=== PATIENT | female | born 1980 | race Two or more races ===

== ENCOUNTER 2019-09-25 06:46 | Emergency (ER) | payer OTHER ==
[~2019-09-25] VITALS: Ht 162.6 cm; Wt 93.0 kg
[2019-09-25 07:24] LABS: BASOPHILS # (AUTO) 0.06 x10^3/uL (0-0.1); BASOPHILS % (AUTO) 1 % (0-1); EOSINOPHILS # (AUTO) 0.06 x10^3/uL (0-0.4); EOSINOPHILS % (AUTO) 1 % (1-7); LYMPHOCYTES # (AUTO) 1.34 x10^3/uL (1-3.4); LYMPHOCYTES % (AUTO) 26 % (22-44); MD NO; MEAN CORPUSCULAR HEMOGLOBIN 24.3 pg (27.0-34.8); MEAN CORPUSCULAR HGB CONC 32.4 g/dL (32.4-35.8); MEAN CORPUSCULAR VOLUME 75.2 fL (80-100); MEAN PLATELET VOLUME 9.1 fL (7.4-10.4); MONOCYTES # (AUTO) 0.25 x10^3/uL (0.2-0.8); MONOCYTES % (AUTO) 5 % (2-9); NEUTROPHILS # (AUTO) 3.54 x10^3/uL (1.8-6.8); NEUTROPHILS % (AUTO) 67 % (42-75); PLATELET COUNT 294 x10^3/uL (130-400); RED CELL DISTRIBUTION WIDTH 16.3 % (9.6-15.2)
[2019-09-25 07:37] LABS: ALANINE AMINOTRANSFERASE 26 U/L (12-78); ALBUMIN 3.5 g/dL (3.4-5.0); ANION GAP 7 mmol/L (5-15); CALCIUM 8.8 mg/dL (8.5-10.1); CHLORIDE 110 mmol/L (98-107); CREATININE 0.76 mg/dL (0.55-1.02)
[2019-09-25 07:41] LABS: ALKALINE PHOSPHATASE 76 U/L (45-117); BILIRUBIN,TOTAL 0.3 mg/dL (0.2-1.0); TOTAL PROTEIN 7.4 g/dL (6.4-8.2)
[2019-09-25 07:47] LABS: MICROSCOPIC INDICATED
--- NOTE | 2019-09-25 07:48 | NUR ---
Pt to rm 16 from [facility]
[2019-09-25 07:56] LABS: CULTURE INDICATED? YES
[2019-09-25] MEDS ORDERED: ONDANSETRON ODT 8 MG PO ONE (08:00)
[2019-09-25] MEDS ORDERED: KETOROLAC 30 MG/1 ML IM ONE (08:00)
--- NOTE | 2019-09-25 08:00 | NUR ---
FIRST CONTACT WITH PT. PT C/O RIGHT BACK PAIN AND ABD PAIN ALONG WITH NAUSEA. PT'S AOX4. RESPS EVEN AND UNLABORED. BP/SPO2 MONITORS IN PLACE. CALL LIGHT WITHIN REACH.
[2019-09-25] MEDS ORDERED: KETOROLAC 30 MG/1 ML ONE ×2 (08:06→08:11)
[2019-09-25] MEDS ORDERED: ONDANSETRON ODT 8 MG ONE (08:06)
--- NOTE | 2019-09-25 08:20 | NUR ---
PT MEDICATED PER EMAR. PT TOLERATED WELL.
--- NOTE | 2019-09-25 08:23 | NUR ---
PT IN CT AT THIS TIME.
[2019-09-25] MEDS ORDERED: CEFTRIAXONE 1,000 MG IM ONE (09:00)
[2019-09-25] MEDS ORDERED: CEFTRIAXONE 1,000 MG ONE (09:12)
[2019-09-25 09:17] VITALS: BP 122/77
--- NOTE | 2019-09-25 09:18 | NUR ---
PT MEDICATED PER EMAR. PT TOLERATED WELL.
--- NOTE | 2019-09-25 09:26 | NUR ---
Patient given discharge instructions and they have confirmed that they understand the instructions.
[2019-09-25] MEDS ORDERED: CEFD300C37 PO (23:13)
== END 2019-09-25 09:27 | disposition home or self-care (01) ==
LOC: ED 08:57
DX: N13.2 Hydronephrosis with renal and ureteral calculous obstruction (principal)
CPT/HCPCS: 36415; 74176; 80053; 81001; 83690; 84703; 85025; 87086; 93005; 96372; 99285; J0696; J1885; Q0162

== ENCOUNTER 2019-09-25 21:57 | Emergency (ER) | payer OTHER ==
[~2019-09-25] VITALS: Ht 162.6 cm; Wt 94.0 kg
[2019-09-25] MEDS ORDERED: HYDROmorphone 1 MG/ML, 1ML INJ ONE (22:39)
[2019-09-25] MEDS ORDERED: KETOROLAC 30 MG/1 ML ONE (22:39)
[2019-09-25] MEDS ORDERED: ONDANSETRON 2MG/ML, 2ML ONE (22:39)
--- NOTE | 2019-09-25 22:41 | NUR ---
PT CAME IN CO OF 10 RIGHT FLANK PAIN. WAS SEEN EARLIER TODAY AND DIAGNOSED WITH KIDNEY STONES. FEMALE RN IS GETTING STRAIGHT CATH UA. SEE MAR FOR PAIN INTERVENTIONS
[2019-09-25 22:53] LABS: MICROSCOPIC INDICATED
--- NOTE | 2019-09-25 22:59 | NUR ---
PT REPORTS PAIN IMPROVEMENT TO 1/10.
[2019-09-25] MEDS ORDERED: KETOROLAC 30 MG/1 ML IVPush ONE (23:00)
[2019-09-25] MEDS ORDERED: SODIUM CHLORIDE FLUSH 10ML SYR IVF ONE (23:00)
[2019-09-25] MEDS ORDERED: HYDROmorphone 2 MG/ML, 1ML IVPush PRN (23:00)
[2019-09-25] MEDS ORDERED: ONDANSETRON 2MG/ML, 2ML IVPush ONE (23:00)
[2019-09-25 23:01] LABS: BASOPHILS # (AUTO) 0.04 x10^3/uL (0-0.1); BASOPHILS % (AUTO) 0 % (0-1); EOSINOPHILS % (AUTO) 0 % (1-7); LYMPHOCYTES # (AUTO) 0.84 x10^3/uL (1-3.4); LYMPHOCYTES % (AUTO) 8 % (22-44); MD NO; MEAN CORPUSCULAR HEMOGLOBIN 24.3 pg (27.0-34.8); MEAN CORPUSCULAR HGB CONC 32.8 g/dL (32.4-35.8); MEAN CORPUSCULAR VOLUME 74.2 fL (80-100); MEAN PLATELET VOLUME 9.4 fL (7.4-10.4); MONOCYTES # (AUTO) 0.22 x10^3/uL (0.2-0.8); MONOCYTES % (AUTO) 2 % (2-9); NEUTROPHILS # (AUTO) 9.91 x10^3/uL (1.8-6.8); NEUTROPHILS % (AUTO) 90 % (42-75); PLATELET COUNT 300 x10^3/uL (130-400); RED BLOOD COUNT 4.74 x10^6/uL (3.82-5.3); RED CELL DISTRIBUTION WIDTH 16.5 % (9.6-15.2)
[2019-09-25 23:02] LABS: CULTURE INDICATED? NO
--- NOTE | 2019-09-25 23:07 | NUR ---
REPORT GIVEN TO CORWIN DRAPER
[2019-09-25 23:12] LABS: ALBUMIN 3.8 g/dL (3.4-5.0); ANION GAP 10 mmol/L (5-15); CALCIUM 9.2 mg/dL (8.5-10.1); CHLORIDE 112 mmol/L (98-107); CREATININE 1.32 mg/dL (0.55-1.02)
--- NOTE | 2019-09-25 23:12 | NUR ---
ASSUMED CARE OF PATIENT. REPORT GIVEN FROM CORWIN TORRES
[2019-09-25] MEDS ORDERED: CEFD300C37 PO (23:13)
[2019-09-26] MEDS ORDERED: TAMSULOSIN 0.4 MG CAP.ER.24H PO ONE (00:30)
[2019-09-26] MEDS ORDERED: OXYcodone/APAP 5/325MG TABLET PO ONE (00:30)
--- NOTE | 2019-09-26 00:44 | NUR ---
HOLD PERCOCET PER DR MARQUEZ.
[2019-09-26] MEDS ORDERED: TAMSULOSIN 0.4 MG CAP.ER.24H ONE (00:45)
[2019-09-26 00:53] VITALS: BP 119/82
--- NOTE | 2019-09-26 00:54 | NUR ---
PT READY FOR DC. PT DISCHARGED PER DR MARQUEZ. PT HAS A RIDE HOME FROM HER .
== END 2019-09-26 00:56 ==
LOC: ED 09-26 00:50
DX: N20.2 Calculus of kidney with calculus of ureter (principal); R94.4 Abnormal results of kidney function studies; R10.9 Unspecified abdominal pain; R11.2 Nausea with vomiting, unspecified
CPT/HCPCS: 36415; 80048; 81001; 82040; 85025; 96374; 96375; 99285; J1170; J1885; J2405